=== PATIENT | male | born 1955 | race Caucasian/White ===

== ENCOUNTER 2019-06-14 07:01 | Emergency (ER) | payer BC, SELFPAY ==
[2019-06-14 07:06] VITALS: BP 159/99; PULSE 75; RESP 17; TEMP 36.5; O2SAT 97; BMI 31.1
--- NOTE | 2019-06-14 07:18 | VDLE_ITS ---
Reason For Study: Pain RIGHT GSV is normal. CFV is compressible, spontaneous, phasic, competent and demonstrates normal augmentation. FV is compressible, spontaneous, phasic, competent and demonstrates normal augmentation. POP V is compressible, spontaneous, phasic, competent and demonstrates normal augmentation. T/P Trunk is compressible. PTV is compressible. RT PerV is compressible. Procedure Exam performed portable in ED. A preliminary report was called and/or faxed to [facility]. Interpretation Summary There is no evidence of right lower extremity deep vein thrombosis. Right great saphenous vein appears patent and compressible segmentally. Ordering Physician: Asim Luis Referring Physician: Elias Dutton M.D. Performed By: Summer Robertson RVT
--- NOTE | 2019-06-14 07:29 | ED.DCSUM_ITS ---
History of Present Illness Chief Complaint: Lower Extremity Injury Informant: Patient Onset: Today Context: - - awoke w/ sx 1 hr ago Timing: Continuous Quality of Pain: - - sore Location: right calf Current Severity: Moderate Maximum Severity: Moderate Worsened by: palpation Relieved by: leaving alone Associated Symptoms: Negative for: Parasthesia, Weakness, Loss of Funtion Narrative: Patient concern he may have developed a blood clot in his right leg. He had one before, it was a couple years ago, he was treated with Xarelto for an unknown period of time, and he is no longer anticoagulated. He has had no recent travel, but states his prior blood clot may have been provoked by a trip to [place]. No recent surgery or hospitalization or other illness. Denies any known injury. He states when he went to bed last night he did not have this, but it appeared when he awoke. He also noticed redness and localized swelling where the redness is. Denies any foreign body or break in the skin lately that could be a nidus for infection. No fevers. No chest pain or shortness of breath or lightheadedness or palpitations. Prior similar symptoms: Yes Recent Illness/Hospitalization: No - Past Medical History (1) Hypertension Status: Chronic (2) DVT (deep venous thrombosis) Status: Resolved Past Medical History - Allergies and Home Meds Allergies/Adverse Reactions: Allergies Penicillins Allergy (Verified 06/14/19 07:03) Rash Primary Care Physician: Elias Dutton MD [Primary Care Provider] - Lives: With Family Smoking Status: Never smoker Review of Systems General: Denies: Chills, Fever, Sweats Eyes: Denies: Visual changes - bilaterally, Diplopia ENT: Denies: Rhinorrhea, Sore throat Cardiovascular: Denies: Chest pain, Palpitations Respiratory: Denies: Dyspnea, Cough, Dyspnea on exertion Gastrointestinal: Denies: Abdominal pain, Nausea, Vomiting, Diarrhea, Melena, Hematochezia Genitourinary: Denies: Dysuria, Hematuria, Frequency Musculoskeletal: Reports: Extremity Pain. Denies: Back pain Skin: Reports: Rash - Redness at painful area, right lower leg. Denies: Wounds Neurological: Denies: Headache, Weakness, Numbness Physical Exam Vital Signs/Narrative: Vital Signs Temp Pulse Resp BP Pulse Ox 06/14/19 07:06 97.7 F L 75 17 159/99 H 97 Inital Vital Signs reviewed: Yes - Extremity Exam Right Tib fib: - - Tender erythematous warm patch of skin with mild induration but no palpable cord in the anteromedial right calf. There is localized swelling, but nothing that is dependent/distal or proximal. There is no lymphangitis, progression to the knee, or palpable cords in the thigh. Full range of motion throughout all joints of the right lower extremity without difficulty. All compartments are soft and nondistended.. Negative for: Limited ROM General: Well nourished, Well developed, - - Well-appearing, NAD Skin: No Trauma, Rash - Mildly tender erythema medial calf of the right lower leg, it is a patch that is approximately 4-5 cm in diameter, it is not circular however. There is no lymphangitis. No abscess or fluctuance/pointing. No obvious trauma or obvious nidus for infection or evidence of a foreign body recently. Neurological: Alert, Oriented x3, Cranial nerves II-XII grossly intact, Normal Strength, Normal Sensation, Normal Gait Psychological: Normal affect, Normal Mood Diagnostic/Tx/Re-eval - Medical Decision Making This patch in his right lower leg looked and felt more like a superficial venous thrombosis than a deep one, but since ultrasound was available was obtained. It shows no evidence of deep or superficial venous thrombosis or any other vascular abnormality. Therefore the most likely explanation is that it is early cellulitis. He is well-appearing and his vital signs are unremarkable except for mild systolic hypertension, he is not septic and I do not think further work-up is necessary at this time. He will be treated with antibiotics. When he was a child he developed a rash as a response to penicillins, no anaphylactic reactions. He does not remember if he has ever had a cephalosporin before. He was given an injection of Ancef here, he had no reaction when monitored, and he will be prescribed Keflex. We discussed watching the area for worsening, following up, and/or returning to the ER. He is comfortable with this overall plan. ED Disposition - Plan for ED Patient: Disposition: Home or Assisted Living Diagnosis: Cellulitis of right lower leg Instructions: Cellulitis Prescriptions: Cephalexin [Keflex] 500 mg PO Q6H #40 cap Transmission Status: Pending to [id number] Referrals: Elias Dutton MD [Primary Care Provider] - 3-5 Days if not improving
[2019-06-14] MEDS: Cefazolin 1 GM/5 ML Vial IM (09:23)
== END 2019-06-14 09:51 | disposition home or self-care (01) ==
PROVIDERS: Emergency Provider Emergency Medicine; PCP Internal Medicine
DX: L03.115 Cellulitis of right lower limb (principal); I10 Essential (primary) hypertension; Z86.718 Personal history of other venous thrombosis and embolism; Z79.899 Other long term (current) drug therapy
CPT/HCPCS: 93971; 96372; 99282

== ENCOUNTER → 2019-07-15 08:14 | Outpatient (CLI) | payer BC, SELFPAY ==
--- NOTE | 2019-07-15 08:21 | RAD_ITS ---
STUDY: X-RAY - CERVICAL SPINE REASON FOR EXAM: Male, 64 years old. BILATERAL ARM WEAKNESS, PARANESTHESIAS LEFT HAND. TECHNIQUE: 5 view(s) of the cervical spine were obtained. COMPARISON: None FINDINGS: Normal anterior atlantoaxial articulation. Normal odontoid process. Straightening of the cervical lordosis. Normal vertebral bodies. Degenerative spurring at the endplates. Narrowed C5-6 disc space. Uncovertebral spurring narrowing the C4-5 and C5-6 intervertebral neuroforamina. The soft tissue structures are unremarkable. RAD/Cerv Spine 4 or 5 Views IMPRESSION: Degenerative changes of the visualized cervical spine. Electronically Signed: Jace Jenkins DO at 10:46 EDT Tel [phone], Service support ,
== END ==
PROVIDERS: PCP Internal Medicine; Referring Provider Family Medicine; Visit Provider Family Medicine
DX: M54.12 Radiculopathy, cervical region (principal)
CPT/HCPCS: 72050

== ENCOUNTER 2019-11-08 13:32 | Emergency (ER) | payer OTHER, BC, SELFPAY ==
[2019-11-08 13:33] VITALS: BP 138/89; PULSE 89; RESP 16; TEMP 36.6; O2SAT 99; BMI 30.9
--- NOTE | 2019-11-08 14:12 | ED.VIS.INJ ---
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 He had no loss of consciousness. He states he has a mild headache, nothing severe. He denies any vision changes, neurologic symptoms, ataxia with walking, nausea, or vomiting. He takes no anticoagulants or antiplatelets. Tetanus Immunization: >10 years - Past Medical History (1) Hypertension Status: Chronic (2) DVT (deep venous thrombosis) Status: Resolved Past Medical History - Allergies and Home Meds Allergies/Adverse Reactions: Allergies Penicillins Allergy (Verified 11/08/19 13:35) Rash Primary Care Physician: [facility] [Provider Group] - 5 Days for suture removal Lives: Spouse/ Significant Other Smoking Status: Never smoker Review of Systems General: Denies: Chills, Fever, Sweats Eyes: Denies: Visual changes - bilaterally, Diplopia ENT: Denies: Bilateral ear pain - or drainage, Rhinorrhea, Sore throat Cardiovascular: Denies: Chest pain, Palpitations Respiratory: Denies: Dyspnea, Cough, Dyspnea on exertion Gastrointestinal: Denies: Abdominal pain, Nausea, Vomiting, Diarrhea, Melena, Hematochezia Genitourinary: Denies: Dysuria, Hematuria, Frequency Musculoskeletal: Denies: Neck pain, Back pain, Extremity Pain Skin: Reports: Wounds. Denies: Rash Neurological: Reports: Headache. Denies: Weakness, Numbness Physical Exam Vital Signs/Narrative: Vital Signs Temp Pulse Resp BP Pulse Ox 11/08/19 13:33 98 F 89 16 138/89 H 99 Inital Vital Signs reviewed: Yes General: Well nourished, Well developed Head: Normocephalic, Trauma - Occipital scalp, 5 cm linear, clean-appearing laceration down to the periosteum; galea included in laceration but not through its entire length, maybe 3cm worth of galea involved. No crepitance or depression. Minimal oozing of blood, no pulsatile bleeding. No gross contamination of wound although skin is dirty. Pt is bald on scalp., Tenderness - Occipital scalp laceration Eyes: Perrl, EOMI ENT: TM's clear, No hemotympanum or drainage, No trauma. Negative for: Otorrhea Neck: Nontender, Full ROM Respiratory: No distress Extremeties: Full range of motion throughout all 4 extremities, atraumatic. Skin: Normal color, No rash, Trauma - Occipital scalp laceration 5 cm. See above. Neurological: Alert, Oriented x3, Cranial nerves II-XII grossly intact, Normal Strength, Normal Sensation, Normal Gait Psychological: Normal affect Diagnostic/Tx/Re-eval - Medical Decision Making I do not think patient needs a CT scan of the head, this appears to be localized to the scalp. I discussed that he is in agreement, he has a mild headache but no other concussion symptoms. Discussed reasons to return to the ER. [email or web address] Tetanus was updated. Total of 5 cc of 1% lidocaine with epinephrine in addition to topical let was used for local anesthesia. Laceration scalp Length: 5 cm Depth: to periosteum Shape: Linear Prep: Sterile Conditions Number of Sutures/Saragosa: 6 - irvin to skin Stitch Description: Vicryl - #2, deep/buried in galea, Simple, 4-0 Comment: 2-layer repair ED Disposition - Plan for ED Patient: Disposition: Home or Assisted Living Diagnosis: Occipital scalp laceration, Fall from slip, trip, or stumble, Tetanus-diphtheria (Td) vaccination Instructions: ED Laceration Scalp Sutures or Saragosa Referrals: [facility] [Provider Group] - 5 Days for suture removal
[2019-11-08] MEDS: Diphth,Pertuss(Acell),Tet Vac 0.5 ML Vial IM (14:24)
[2019-11-08] MEDS: Lidocaine/Epi/Tetracaine 50 ML 1 APPLIC TOPICAL (14:33)
== END 2019-11-08 15:50 | disposition home or self-care (01) ==
LOC: ED 14:26
PROVIDERS: Emergency Provider Emergency Medicine; PCP Internal Medicine
DX: S01.01XA Laceration without foreign body of scalp, initial encounter (principal); W01.0XXA Fall on same level from slipping, tripping and stumbling without subsequent striking against object, initial encounter; Y93.9 Activity, unspecified; Y92.9 Unspecified place or not applicable; Z23 Encounter for immunization; I10 Essential (primary) hypertension; Z86.718 Personal history of other venous thrombosis and embolism; Z79.899 Other long term (current) drug therapy
CPT/HCPCS: 12002; 90471; 90715; 99283

== ENCOUNTER → 2020-03-11 06:33 | Outpatient (CLI) | payer BC, SELFPAY ==
--- NOTE | 2020-03-11 08:53 | NEURO_ITS ---
NCS and/or EMG Patient Report Ordering Doctor: Rayray Knight DATE OF SERVICE: 03/11/20 Indication: Bilateral lower extremity weakness (left greater than right). 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 His balance is poor. He experiences strange sensations in his feet. There have been several falls on account of his left leg buckling. Findings: Nerve conduction studies were performed in the bilateral lower extremities. The right peroneal motor study recording the extensor digitorum brevis showed an absent response. The right tibial motor study recording the abductor hallucis brevis showed a markedly reduced amplitude, normal distal latency and slowed conduction velocity. Right sural sensory response was absent. Right superficial peroneal sensory response was absent. The left peroneal motor study recording the extensor digitorum brevis showed markedly reduced amplitude, normal latency, and slowed conduction velocity. The left tibial motor study recording the abductor hallucis brevis showed an absent response. Left sural sensory response was absent. Left superficial peroneal sensory response was absent. Needle EMG of the left lower extremity muscles was performed. Mild active denervation was present in the tibialis anterior, medial gastrocnemius, and extensor hallucis longus muscles. More prominent denervation was present in the vastus medialis and rectus femoris muscles. Distal muscles revealed large amplitude, long duration and polyphasic motor units. The rectus femoris and vastus medialis muscles revealed slightly small amplitude, short duration and polyphasic units with early recruitment. Given the needle exam findings in the lower extremity, a limited EMG examination of the left upper extremity was performed. Active denervation was present in the flexor digitorum profundus and flexor carpi radialis muscles. Motor units in the deltoid, triceps, and first dorsal interosseous were slightly large amplitude, long duration with normal recruitment. Only one rapidly firing, polyphasic motor unit was seen in the flexor digitorum profundus. Motor units in the flexor carpi radialis were slightly low amplitude, short duration, and polyphasic with early recruitment. Impression: This is markedly abnormal and complex study. 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 If a muscle biopsy is to be pursued, the RIGHT vastus lateralis and/or rectus femoris would be an appropriate site. 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 Please note, due to the coexistence of the two aforementioned conditions this study would be insensitive for detecting an underlying radiculopathy. Segun Ly D.O.
== END ==
PROVIDERS: PCP Internal Medicine; Referring Provider Physician Assistant; Visit Provider Physician Assistant
DX: M54.16 Radiculopathy, lumbar region (principal)
CPT/HCPCS: 95886; 95910

== ENCOUNTER → 2020-03-22 10:05 | Outpatient (CLI) | payer BC, SELFPAY ==
--- NOTE | 2020-03-22 10:11 | EKG12_ITS ---
Test Reason : PRE OP Blood Pressure : / mmHG Vent. Rate : 071 BPM Atrial Rate : 071 BPM P-R Int : 156 ms QRS Dur : 098 ms QT Int : 374 ms P-R-T Axes : 062 053 040 degrees QTc Int : 406 ms Normal sinus rhythm Nonspecific ST abnormality Abnormal ECG Confirmed by MARY GRACE FLORES, DARIEN ([id number]), editor in chief newspaper FAIZA CARDONA ([id number]) on 03/25/2020 10:36:53 AM Referred By: Sanjiv Mccarthy Confirmed By:DARIEN BRODY MD
--- NOTE | 2020-03-22 10:11 | RAD_ITS ---
STUDY: X-RAY CHEST REASON FOR EXAM: Male, 65 years old. pre op -- no chest complaints TECHNIQUE: PA and lateral views of the chest. COMPARISON: None. FINDINGS: The lungs are clear and expanded. There is no demonstrated pleural abnormality. Normal size heart. Normal mediastinum and ashly. Normal visualized pulmonary arteries. Normal visualized aortic arch and descending thoracic aorta. Normal visualized thoracic spine. Normal visualized ribs, clavicles, and shoulders. There is no demonstrated abnormality of the visualized soft tissue structures of the upper abdomen. RAD/Chest PA and Lateral IMPRESSION: Normal x-ray examination of the chest. Electronically Signed: Gilberto Zayas MD at 17:34 EST Tel , Service support ,
[2020-03-22 11:17] LABS: Absolute Lymphocyte Count 1.82 X10^3/uL (0.83-4.51); Absolute Neutrophil Count 4.1 X10^3/uL (2.0-7.7); Basophil# 0.05 X10^3/uL; Basophil% 0.7 % (0-1); Eosinophil# 0.23 X10^3/uL; Eosinophils% 3.4 % (0-5); Hematocrit 41.8 % (40-54); Hemoglobin 13.9 g/dL (13.0-16.5); Lymphocyte # 1.82 X10^3/ul (4.0); Lymphocyte % 26.5 % (19-41); Mean Corp Hgb Conc 33.3 g/dL (32-36); Mean Corpuscular Hgb 30.6 pg (27.0-32.0); Mean Corpuscular Volume 92.1 fL (80-94); Mean Platelet Vol. 9.3 fl (6.2-12.0); Monocyte# 0.64 X10^3/uL; Monocyte% 9.3 % (0-10); NRBC Flagged by Analyzer 0 % (0-5); Neutrophil # 4.09 X10^3/uL (2.7-7.7); Neutrophil % 59.7 % (47-70); Platelet Count 305 K/mm3 (150-450); RBC Distribution Width CV 14.1 % (11.6-14.6); RBC Distribution Width SD 47.5 fl (35.1-43.9); Red Blood Count 4.54 M/mm3 (4.6-6.2); White Blood Count 6.9 K/mm3 (4.4-11.0)
[2020-03-22 11:33] LABS: Hemoglobin A1c 5.5 % (3.8-5.6)
[2020-03-22 11:50] LABS: Anion Gap 5 (5-15); BUN 26 mg/dL (7-18); BUN/Creat Ratio 29.9 RATIO (10-20); Calcium,Total 9.2 mg/dL (8.5-10.1); Chloride 106 mmol/L (98-107); Creatinine, Serum 0.87 mg/dL (0.70-1.30); EST Glomerular Filtration Rate 94 mL/min (>60); Est Glom Filt Rate - Afr Amer 113 mL/min (>60); Glucose 90 mg/dL (74-106); Potassium 4.3 mmol/L (3.5-5.1); Sodium Level 137 mmol/L (136-145)
[2020-03-22 12:36] LABS: International Normalized Ratio 1.1; Prothrombin Time (Protime)PT. 13.5 SECONDS (11.7-14.9)
[2020-03-22 12:37] LABS: Partial Thromboplast Time 27.8 Seconds (24.1-36.2)
== END ==
PROVIDERS: PCP Family Medicine; Referring Provider Orthopaedic Surgery; Visit Provider Orthopaedic Surgery
DX: Z01.811 Encounter for preprocedural respiratory examination (principal); Z01.818 Encounter for other preprocedural examination; Z01.810 Encounter for preprocedural cardiovascular examination
CPT/HCPCS: 36415; 71046; 80048; 83036; 85025; 85610; 85730; 93005

== ENCOUNTER → 2020-04-08 | Outpatient (CLI) | payer BC, SELFPAY | END | disposition home or self-care (01) | LOC: LABSPEC 09:50 | PROVIDERS: PCP Family Medicine; Referring Provider Orthopaedic Surgery; Visit Provider Orthopaedic Surgery | DX: Z11.59 Encounter for screening for other viral diseases (principal) | CPT/HCPCS: 87635; C9803; U0003 ==

== ENCOUNTER → 2020-04-19 10:34 | Outpatient (CLI) | payer BC, SELFPAY | PROVIDERS: PCP Family Medicine; Referring Provider Orthopaedic Surgery; Visit Provider Orthopaedic Surgery | DX: Z11.59 Encounter for screening for other viral diseases (principal) | CPT/HCPCS: 87635; U0003 ==

== ENCOUNTER → 2020-04-22 13:21 | Outpatient (CLI) | payer BC, SELFPAY ==
--- NOTE | 2020-04-22 13:31 | MRI_ITS ---
STUDY: MRI CERVICAL SPINE WITHOUT CONTRAST REASON FOR EXAM: Male, 65 years old. monoplegia pain neck and left shoulder/ arm, numbness hand TECHNIQUE: Standardized fat and water weighted pulse sequences were obtained in the sagittal and axial planes. COMPARISON: X-ray of the cervical spine dated July 15, 2019 FINDINGS: Normal foramen magnum and brainstem-cervical cord junction. Normal craniovertebral junction. Normal anterior atlantoaxial articulation. Normal odontoid process. There is reversal of the normal cervical lordosis. C2-3: Normal endplates. The disc is desiccated. Normal disc height and morphology. Normal central canal and intervertebral neural foramina. C3-4: Mild to moderate disc space narrowing with a diffuse disc spur complex and superimposed moderate midline disc extrusion causing compression anterior aspect of the cord and moderate central canal stenosis. Severe left foraminal stenosis with compression is present due to uncovertebral facet joint hypertrophy. Mild right foraminal stenosis is present. C4-5: Mild to moderate disc space narrowing with a diffuse disc osteophyte complex and superimposed central disc contusion resulting in moderate central canal stenosis and compression anterior aspect of the cord. Normal right neural foramen. Severe left foraminal stenosis with nerve root due to combine facet joint and uncovertebral hypertrophy. C5-6: Severe disc space narrowing with a diffuse disc osteophyte complex causes moderate central canal stenosis and compression anterior aspect of the cord. Moderate bilateral foraminal stenosis with nerve root compression is also present. Retrolisthesis of C5 on C6 of 2 mm is also present. C6-7: Mild posterior disc space narrowing and broad-based is herniation contribute to mild central canal stenosis and mild compression anterior aspect of the cord. Normal intervertebral neural foramina. C7-T1: Normal endplates. Normal disc height, signal and morphology. Normal central canal and intervertebral neural foramina. Normal cervical cord. There is no demonstrated cervical cord syrinx cavity. Normal visualized soft tissue structures. MRI/Spine Cervical (Routine) IMPRESSION: 1. Multilevel degenerative changes, as described above. 2. Mild to moderate central canal stenosis and cord compression from C3-C4 down to C6-C7. Electronically Signed: Andrew Sheth MD at 22:27 EST , Service support ,
== END ==
PROVIDERS: PCP Family Medicine; Referring Provider Anesthesiology Pain Medicine; Visit Provider Anesthesiology Pain Medicine
DX: G83.34 Monoplegia, unspecified affecting left nondominant side (principal)
CPT/HCPCS: 72141

== ENCOUNTER → 2020-04-23 | Outpatient (CLI) | payer BC, SELFPAY ==
--- NOTE | 2020-04-23 | MUSA_PTH ---
PATIENT: PRANAV AMAYA LOC: [facility] U#:[id number] AGE/SX: 65/M ROOM: RE04/23/[address]: Dr. Sanjiv Mccarthy DO : 1955 BED: DIS: 04/23/2020 SPEC #: [id number] RECD: 04/23/20 10:30 STATUS: MARK AYAKA #: [id number] [facility]: 04/23/20 00:[address]: Sanjiv Mccarthy DEPT: SURGICAL PATHOLOGY RECD BY: Omid Gonzalez ENTERED: 04/23/20 10:30 SP TYPE: MUSCLE BX VICENTE DR: Dr. Fernando Duckworth MD [facility] Tissues: MUSCLE OF.. Procedures: Electron Microscopy (ACH) Spec St Grp II (ACH) Biopsy ACH HEADER OPERATION: Right vastus lateralis muscle biopsy PRE-OP DIAGNOSIS: Spondylosis with radiculopathy, lumbar region TISSUE SUBMITTED: Right vastus lateral muscle (on tongue depressor wrapped in saline gauze) MICROSCOPIC DIAGNOSIS Skeletal muscle, right vastus lateralis, biopsy: Inflammatory myopathy with focal myonecrosis. COMMENT Taken together, the features are diagnostic of an inflammatory myopathy, with the presence of myonecrosis being of note. Myonecrosis may be seen in a number of myopathic conditions, including but not limited to, dysferlin deficiency and paraneoplastic myopathy. The rare rimmed vacuoles raise the differential consideration for inclusion body myositis; however, electron microscopy studies do not show any evidence of tubulofilamentous inclusions. Clinical correlation is recommended. There is no evidence of neurogenic change. MICROSCOPIC DESCRIPTION Sections show a partially well-oriented portion of skeletal muscle with a moderate variation in fiber size. There are frequent rounded atrophic fibers present. Degenerating and regenerating fibers are present. Occasional fibers show macrophage invasion indicative of myonecrosis. There is extensive endomysial inflammation. There is no evidence of vasculitis. The biopsy contains some fascia. A rare split fiber is seen. There is mild fatty replacement of the muscle. Due to the orientation of the specimen, hypertrophic fibers are difficult to evaluate. There does not appear to be an increase in the number of myofibers with internalized nuclei. Trichrome stain highlights rare rimmed vacuoles, but no deposits or ragged red fibers are seen. ATPase stains, performed at pH 4.6 and pH 9.4, show type 2 atrophy. NADH, SDH and ELLIOTT stains show scattered fibers with central pallor, although many fibers showing this feature are tangentially cut. PAS and Oil Red O stains show no evidence of increased glycogen or lipid deposition, respectively. Electron microscopy studies were performed. Resin sections are examined which show portions of longitudinally oriented muscle. Ultrastructural examination shows normal myofibrillary architecture. There are rare areas with membranous whorls. There is minimal glycogen deposition, predominantly at the periphery of some myofibers. There are some myofibers with swollen mitochondria. No tubulointerstitial filaments are seen. GROSS DESCRIPTION The specimen is sent entirely to [facility] diagnosis. The specimen consists of a muscle biopsy received fresh on saline-dampened gauze, on ice, sutured and stretched onto a stick. The specimen is red and measures 2.5 x 1.5 x 0.6 cm. Dowel Pin Man portions are submitted for histochemistry, light microscopy and electron microscopy; extra frozen in foil.
== END | disposition home or self-care (01) ==
PROVIDERS: PCP Family Medicine; Referring Provider Orthopaedic Surgery; Visit Provider Orthopaedic Surgery
DX: M47.26 Other spondylosis with radiculopathy, lumbar region (principal)
CPT/HCPCS: 88300; 88305; 88313; 88348

== ENCOUNTER → 2020-05-10 | Outpatient (CLI) | payer BC, SELFPAY | END | disposition home or self-care (01) | LOC: LABSPEC 15:16 | PROVIDERS: PCP Family Medicine; Referring Provider Orthopaedic Surgery; Visit Provider Orthopaedic Surgery | DX: T81.89XA Other complications of procedures, not elsewhere classified, initial encounter (principal) | CPT/HCPCS: 87070; 87075; 87077; 87186; 87205 ==

== ENCOUNTER → 2020-06-13 09:10 | Outpatient (CLI) | payer BC, SELFPAY ==
[2020-06-13 10:46] LABS: Erythrocyte Sedimentation Rate 10 mm/hr (0-20)
[2020-06-13 10:58] LABS: Hemoglobin A1c 5.3 % (3.8-5.6)
[2020-06-13 11:03] LABS: Vitamin B12 450 pg/mL (211-911)
[2020-06-13 11:39] LABS: CPK Total, Creatine Kinase 872 U/L (39-308); CRP < 2.90 mg/L (0.0-3.0); Rheumatoid Factor < 10.0 IU/mL (<15); Thyroid Stim Hormone (TSH) 3.15 uIU/mL (0.358-3.74)
[2020-06-14 12:08] LABS: RNP Ab <0.2 AI (0.0-0.9); Smith Ab <0.2 AI (0.0-0.9)
[2020-06-14 13:48] LABS: ANTINUCLEAR ANTIBODIES DIRECT Negative (Negative)
[2020-06-14 16:09] LABS: Albumin 3.8 g/dL (2.9-4.4); Alpha-1-Globulins 0.1 g/dL (0.0-0.4); Alpha-2-Globulins 0.8 g/dL (0.4-1.0); Cytoplasmic Ab (C-ANCA) <1:20 titer (Neg:<1:20); Gamma Globulin 1.7 g/dL (0.4-1.8); Immunoglobulin A 301 mg/dL (61-437); Immunoglobulin G 1726 mg/dL (603-1613); Immunoglobulin M 49 mg/dL (20-172); PROEL- TOTAL PROTEIN 7.4 g/dL (6.0-8.5)
[2020-06-14 20:53] LABS: Perinuclear Ab (P-ANCA) <1:20 titer (Neg:<1:20)
== END ==
PROVIDERS: PCP Family Medicine; Referring Provider Psychiatry & Neurology Neurology; Visit Provider Psychiatry & Neurology Neurology
DX: G62.9 Polyneuropathy, unspecified (principal); G72.9 Myopathy, unspecified; R53.1 Weakness; G98.8 Other disorders of nervous system; C80.1 Malignant (primary) neoplasm, unspecified
CPT/HCPCS: 36415; 82550; 82607; 82784; 83036; 84165; 84443; 85652; 86038; 86140; 86235; 86256; 86334; 86431

== ENCOUNTER → 2020-06-18 10:20 | Outpatient (CLI) | payer BC, SELFPAY ==
[2020-06-18 10:54] LABS: Absolute Neutrophil Count 6.9 X10^3/uL (2.0-7.7); Basophil# 0.04 X10^3/uL; Basophil% 0.5 % (0-1); Eosinophil# 0.04 X10^3/uL; Eosinophils% 0.5 % (0-5); Hematocrit 43.2 % (40-54); Hemoglobin 14.3 g/dL (13.0-16.5); Lymphocyte % 16.1 % (19-41); Mean Corp Hgb Conc 33.1 g/dL (32-36); Mean Corpuscular Hgb 30.2 pg (27.0-32.0); Mean Corpuscular Volume 91.3 fL (80-94); Monocyte# 0.29 X10^3/uL; Monocyte% 3.3 % (0-10); NRBC Flagged by Analyzer 0 % (0-5); Neutrophil # 6.87 X10^3/uL (2.7-7.7); Platelet Count 339 K/mm3 (150-450); RBC Distribution Width CV 14.2 % (11.6-14.6); RBC Distribution Width SD 47.4 fl (35.1-43.9); Red Blood Count 4.73 M/mm3 (4.6-6.2); White Blood Count 8.7 K/mm3 (4.4-11.0)
[2020-06-18 11:25] LABS: ALB/GLOB Ratio 0.9 RATIO (0.9-2.4); AST(SGOT) 31 U/L (15-37); Alanine Aminotransfer ALT/SGPT 46 U/L (16-61); Albumin, Serum 4.1 g/dL (3.2-5.0); Alkaline Phosphatase 75 U/L (45-117); Anion Gap 4 (5-15); BUN 29 mg/dL (7-18); BUN/Creat Ratio 32.8 RATIO (10-20); Calcium,Total 9.3 mg/dL (8.5-10.1); Chloride 106 mmol/L (98-107); Creatinine, Serum 0.88 mg/dL (0.70-1.30); EST Glomerular Filtration Rate 92 mL/min (>60); Est Glom Filt Rate - Afr Amer 111 mL/min (>60); Globulin 4.4 g/dL (2.2-4.2); Glucose 95 mg/dL (74-106); Potassium 4.6 mmol/L (3.5-5.1); Protein, Total 8.5 g/dL (6.4-8.2); Sodium Level 137 mmol/L (136-145); Uric Acid 5.4 mg/dL (3.5-7.2)
[2020-06-18 12:27] LABS: Hepatitis B Surface Antibody Non-Reactive; Hepatitis B Surface Antigen Non-Reactive (Nonreactive); Hepatitis C Antibody Non-Reactive (Nonreactive)
[2020-06-20 13:05] LABS: CCP IgG Antibodies 6 units (0-19)
== END ==
PROVIDERS: PCP Family Medicine; Referring Provider Internal Medicine Rheumatology; Visit Provider Internal Medicine Rheumatology
DX: G72.41 Inclusion body myositis [IBM] (principal); Q66.70 Congenital pes cavus, unspecified foot; M48.02 Spinal stenosis, cervical region; M47.897 Other spondylosis, lumbosacral region
CPT/HCPCS: 36415; 80053; 81002; 82570; 84156; 84550; 85025; 86200; 86706; 86803; 87340

== ENCOUNTER → 2020-06-20 | Outpatient (CLI) | payer BC, SELFPAY ==
[2020-06-20 08:55] LABS: Protein, Urine (Random) 14.3 mg/dL (<11.9); Protein:Creat Ratio 159 mg/g CRE (0-200)
[2020-06-24 14:08] LABS: PROELU- Albumin, Urine 21.3 % (.); PROELU- Alpha-1-Globulin,Ur 0.2 % (.); PROELU- Alpha-2-Globulin,Ur 7.2 % (.); PROELU- Gamma Globulin, Ur 35.3 % (.); Total Protein, Ur 11.1 mg/dL (Not Estab.)
== END | disposition home or self-care (01) ==
LOC: LABSPEC 08:20
PROVIDERS: PCP Family Medicine; Referring Provider Internal Medicine Rheumatology; Visit Provider Internal Medicine Rheumatology
DX: G72.41 Inclusion body myositis [IBM] (principal); Q66.70 Congenital pes cavus, unspecified foot; M48.02 Spinal stenosis, cervical region; M47.897 Other spondylosis, lumbosacral region
CPT/HCPCS: 82570; 84156; 84166

== ENCOUNTER 2020-10-16 07:30 | Outpatient (RCR) | payer MEDICARE, OTHER, SELFPAY ==
--- NOTE | 2020-09-04 13:05 | HP.PTEVAL ---
Patient's Visit Information PRANAV AMAYA is a 65 year old M referred to Physical Therapy by Dr. Alexander Fagan DO with a diagnosis of Inclusion body myositis. 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 Pt reports he had noticed his L UE and LE being much weaker than the R UE/LE. Pt reports he does have weakness in the R UE a little, but notes the L side is much worse. 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 Pt reports tingling and numbness in B feet in the toe region secondary to neuropathy. No sleep difficulty at this time secondary to pain. Pt reports he has sig difficulty with negotiating stairs at this time secondary to weakness. Pt reports difficulty with sit to stand transfers as well. Pt reports he is not in pain at this time. Pt lives in a ranch house and only goes down stairs to burn fires. - Objective Neuro: B LE sensation is WNL to light touch. R patellar reflex= 2/3, L= 1/3. ROM: R knee 0-90 degrees, L knee 0-35-90. MMT: R knee flex= 4-/5, ext= 4+/5; L knee flex= 4-/5, ext= 3-/5. Gait: Pt is able to ambulate greater than 1000 feet without difficulty - Goals Goal 1:: Increase B LE strength x 1 grade to aid with work requirements Goal Time Frame: 4-6 Weeks Goal 2:: Pt will be able to transfer in and out of his tractor with 50% greater ease to aid with IADL's Goal Time Frame: 4-6 Weeks Goal 3:: I with HEP Goal Time Frame: 4-6 Weeks - Rehabilitation Potential Physical Therapy Diagnosis: Pt has LE weakness, difficulty with stair negotiation, and difficulty with farm duties secondary to inclusion body myositis Rehabilitation Potential: Good - Anticipated Interventions Patient/Client Instruction: Educate patient on: Condition, Plan of Care For the Purpose of:: To improve self management Therapeutic Exercise to Include: Strength training, Endurance training, Balance training, Gait and locomotor training, Dynamic Lumbar Stabilization For the Purpose of:: To improve muscle performance and motor function, To improve ability to perform ADL's, To improve ability of physical actions for home/community/work/leisure Thank you for the opportunity to evaluate your patient. For Medicare and Medicare HMO plans, please review the plan of care and approve it. It will need to be FAXED BACK to us at [phone] for Medicare purposes. For Medicare only, by signing this I certify the plan of care. Please let me know if there are questions or concerns regarding this plan of care. Physician Signature: Date:
--- NOTE | 2020-09-05 16:35 | HP.OTEVAL_ITS ---
Patient's Visit Information PRANAV AMAYA is a 65 year old M, referred to Occupational Therapy by Dr. Alexander Fagan DO, with a diagnosis of Myositis. Date of Evaluation: 09/04/20 Occupational Therapist: Elaine Sunshine, OTR/Khanh, CHT - Subjective This 65 year old male was seen for OT eval with dx of inclusion body myositis. p t states he was dx in May but noticed the weakness for over a year but he thought it was related to arthritis. pt states he has been plateaued with his weakness. 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 pt states getting on and off the tractor is challenging but he states he is able to do it. Pt states he FRANCIE with use of left UE with ADLs and IADLs. pt lives with and his son- both work outside of home. - ROM ROM Comments: pt demo with limited ability to from a composite fist with left hand. pt demo no left IP flex pt is unsure how long this has been - Strength General Magistrate: right 25# left 4# Lateral Pinch: right 16# left 2# Tripod Pinch: right 8# left 2# - Quick DASH-Disab of Arm,Shoulder& Hand Quick DASH Score: 47.5000 - Goals Goal:: pt will demo a increase in bilateral retail service representative strength by 10# to increase pts ind. with ADLS and IADLS by d/c Goal:: pt will demo the ability to manipulate small objects to increase ind. with ADLs and IADLs by d/c - Rehabilitation General Assessment: pt demo weakness in bilateral UE limiting pts functional use of hands for retail service representative/pinch activities. pt would benefit from skilled OT services 1- 2x week for 4 weeks to assist pt on a HEP, ed. on ad. eq. to increase pts ind. with ADLs and IADLs. pt demo understanding and agree to POC. Rehabilitation Potential: Fair - Anticipated Interventions Strengthening, Fine Motor Coord/Sampson, ADL Training, Education re assistive Equipment, Education re Diagnosis - Visit Plan Frequency: 1x/Week Duration: 4 Weeks TEXT: Thank you for the opportunity to evaluate your patient. For Medicare and Medicare HMO plans, please review the plan of care and approve it. It will need to be FAXED BACK to us at [phone] for Medicare purposes. Please let me know if there are questions or concerns regarding this plan of care. Physician Signature: Date:
--- NOTE | 2020-10-04 10:38 | HP.OTDCSUM ---
It has been my pleasure to treat PRANAV AMAYA under orders from Dr. Alexander Fagan DO, for the diagnosis of Myositis for a total of 9 visit(s). Please see the following information for a summary of their discharge status. % Improvement: 25 Objective/Function: L Hot Air Furnace Installer And Repairer 20#. R Hot Air Furnace Installer And Repairer 25#. L Lat Pinch 10#. L Tri Pinch 3#. pt demo good understanding of HEP and states he will continue with is PRE as able. Patient Goals: Improve Fine Motor Skills, Use Hand/Wrist/Arm Normally Again Goal:: pt will demo a increase in bilateral physician/internist strength by 10# to increase pts ind. with ADLS and IADLS by d/c Goal:: pt will demo the ability to manipulate small objects to increase ind. with ADLs and IADLs by d/c Plan: last appt , [place] Discharge Comments: PT was seen for 9 OT visits ed. on HEP that would include UB and physician/internist strength. Pt in good spirits and feels he will cont. with his HEP as able. pt to return to if change in his function. pt agrees with D.C. If there are questions or concerns regarding this patient's occupational therapy, please fell free to call me at [phone]. Thank you for the referral of this patient. Sincerely, Elaine Sunshine, OTR/L, CHT
--- NOTE | 2020-10-07 17:34 | HP.SP.AD_ITS ---
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 Pt referred for speech therapy assessment following a dx of body myositis in April. 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 Today, Pt presents with L sided weakness in L arm and L leg. Pt reports food/drink such as Tajik fries, Roast beef, and pop are challenging for him as they sometime cuts off air, but coughing brings it back up. Pt reports after ejecting stuck bolus using an oral rinse of water will help to clear bolus. Pt reports carbonation from pop makes it feel like its cutting off airway. No hx of pneumonia or GERD; however high BP. Smoking Status: Never smoker Hx Smoking: No Hx Tobacco Use: No - Pain Is pain an issue with your current prescribed condition?: No - Personal Right Hearing Abillity: Normal Left Hearing Abillity: Normal Visual Assistive Devices: Glasses Patients Living Arrangements: With Significant Other Patient Allergies - Allergies Allergies Penicillins Allergy (Verified 11/08/19 13:35) Rash Objective Oral Motor - Oral Status Dentition: Missing Teeth - Labial Observation at Rest: Left Droop Closure: WNL Pucker: WFL Retraction: WFL - Lingual Impairment: WNL Protrusion: WFL Retraction: WFL Lateralization: WFL Involuntary Movement: No - Oral Motor Comments Comments: Observed min weakness on L side at rest which appears to be consistent with LUE and LLE weakness. - Respiratory Status Respiratory Status: Room Air Subjective Dysphagia - Symptoms Reported Symptoms/Problems with: Choking, Difficulty Swallowing Solids, Food gets stuck - Current Diet Solids Current Diet: Regular - Current Diet Liquids Current Liquids: Thin Objective Dysphagia - Administered by Administered by: COLOR CONSULTANT - Thin Liquids Administred via: Cup, Straw Patient Report: Pt reports no difficulties Comments: No overt s/s of aspiration/penetration with drink by cup or straw. Pt consumed thin liquid via straw as oral rinse with no overt s/s of aspiration/penetration. - Regular Impaired Mastication: mastication WFL AP Movement: Timely Patient Report: Pt reported nothing is sticking Comments: No overt s/s of aspiration/penetration. - Results Swallowing Diagnosis: Dysphagia Unspecified Additional: Results of BSE suggest Pt's swallowing WFL, however waiting for MBS report Dysphagia Assessment - Recommendations Swallowing Treatment: Yes - Diet Texture Recommendations Solids Other: Regular Other Solid: as tolerated Liquids: Thin - Safety Saftey Precautions/Swallowing Recommendations (Check all that Apply): Upright Position at Least 30 Minutes After Meals, Small Sips & Bites when Eating Other Impressions - Comments Swallowing Strategies -: Radiology report from [facility] on 09/02/20 indicated decreased pharyngeal transit ; vallecular and piriform sinus residuals with thin/NTL/puree; weakness of pharyngeal wall with reduced laryngeal elevation which worsened on progression. Given these results and Pt's dx, suspect swallowing exercises may increase fatigue of swallowing musculature, therefore increasing Pt's risk of aspiration/penetration of food/drink. Suspect compensatory strategies such as double swallow and effortful swallow would be more beneficial. Still waiting to receive speech tx report from MBS completed on 09/02/20 at [facility]. Plan - Plan Plan: Will recommend pt for intermittent outpatient speech therapy to address progressing effects of myositis on his swallowing. Pt would benefit from training in compensatory strategies for swallowing food/drink and diet recommendations as food/drink become more challenging. Without skilled ST services, the pt is at risk for restrictive diet recommendations and potential for aspiration/penetration of food/drink. - Recommendations Treatment Warranted: Yes - Frequency Frequency: Quarterly Duration: 12 Months Visits in this POC: 4 - Goals that are Established: Determination:: Goals will be added/modified as deemed necessary and appropriate. Therapy will be discontinued when results of re-evaluation indicate therapy is no longer needed or lack of progress has been documented. - Goal #1-5 Goal #1: Pt will consume least restrictive diet with no overt s/s of aspiration/penetration to aid in safe consumption of food/drink upon independence at home. Goal #2: Will continue assessment to determine compensatory strategy goals. Education - Patient has Indicated that the Following Identified Educational Needs: None The Patient has indicated that they have no educational or learning abilities that may effect their care.: Yes - Patient Instruction Patient Education: Diagnosis, Treatment Plan, Safety Precautions, Diet Level Person Taught: Patient Teaching Method: Discussion Response to teaching: Verbalize understanding
--- NOTE | 2020-10-16 08:07 | HP.PTDCSUM ---
It has been my pleasure to treat PRANAV AMAYA referred by Dr. Alexander Fagan DO, with the diagnosis of Inclusion body myositis for a total of 9 visit(s). Discharge Date: Please see the following information for a summary of their discharge status. Subjective: I feel looser overall, but I still have hip pain. R hip Pain Intensity (Out of 10): 4 % Improvement: 60 Objective/Function: R hip pain is 4/10 this date. BLE MMT: B LE hip abd and add= 4+/5. B hip flex, R knee ext= 4-/5. L knee ext= 3-/5. Pt is I with HEP. 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 Thank you for the referral of this patient. Sincerely, Aaron Jerry, PT, ATC
== END 2020-10-16 19:00 | disposition home or self-care (01) ==
LOC: PT 07:30
PROVIDERS: PCP Family Medicine; Referring Provider Psychiatry & Neurology Neurology; Visit Provider Psychiatry & Neurology Neurology
DX: G72.41 Inclusion body myositis [IBM] (principal); R13.0 Aphagia
CPT/HCPCS: 92610; 97110; 97140; 97161; 97164; 97165

== ENCOUNTER → 2022-01-14 | Outpatient (CLI) | payer MEDICARE, OTHER, SELFPAY ==
--- NOTE | 2022-01-14 16:00 | CT_ITS ---
We are attempting to reach an attending provider to discuss findings. An addendum with communication details will be sent when the communication is complete. EXAM: CT CHEST WITH INTRAVENOUS CONTRAST CLINICAL INDICATION: HEMOPTYSIS TECHNIQUE: Helically acquired images were obtained of the chest with intravenous contrast. This CT exam was performed using one or more of the following dose reduction techniques: automated exposure control, adjustment of the mA and/or kV according to patient size, and/or use of iterative reconstruction technique. This report was created using [employer] report BBE technology. CONTRAST: IV 100mL Isovue-300 RADIATION DOSE: CTDIvol = 14.22 mGy, DLP = 543.71 mGy-cm COMPARISON: None. FINDINGS: LUNGS AND PLEURAL SPACES: Unremarkable. No mass. No consolidation or edema. No pleural effusion or thickening. No pneumothorax. HEART: There are calcifications of the coronary arteries. Heart size is normal. No pericardial effusion. MEDIASTINUM: Unremarkable. No mediastinal or hilar adenopathy. Esophagus is unremarkable. No hiatal hernia. THYROID: Unremarkable. No thyroid lesions. BONES/JOINTS: There are degenerative changes of the shoulders. There are multi-level degenerative changes of the thoracic spine. No suspicious lytic or blastic abnormality. VASCULATURE: There is a right lower lobe demonstrated pulmonary embolism. No heart strain. There is atherosclerotic calcification of the aortic arch with tortuosity and elongation of the aortic arch and descending thoracic aorta. Thoracic aorta is non-dilated. No thoracic aortic dissection. CT/Chest WITH Contrast IMPRESSION: There is a right lower lobe demonstrated pulmonary embolism. No heart strain. Electronically Signed: Aaron Dailey MD at 16:20 EDT ,
[2022-01-14 16:20] LABS: EGFR FINGERSTICK > 60.0000 mL/min (>60)
== END | disposition home or self-care (01) ==
LOC: CT 15:49
PROVIDERS: PCP Family Medicine; Referring Provider Family Medicine; Visit Provider Family Medicine
DX: R04.2 Hemoptysis (principal)
CPT/HCPCS: 71260; Q9967

== ENCOUNTER 2022-01-20 01:49 | Emergency (ER) | payer MEDICARE, OTHER, SELFPAY ==
[2022-01-20 01:50] VITALS: BP 152/88; PULSE 86; RESP 17; TEMP 36.3; O2SAT 98; BMI 28.9
--- NOTE | 2022-01-20 02:19 | EDS_ITS ---
HPI History of Present Illness Chief Complaint: Chest Pain Informant: patient Narrative Narrative: Patient resents with right lower chest tightness. He woke up this morning with this. It lasted for about an hour. He states when he first woke up he did feel little short of breath. He does not now. He has no nausea vomiting lightheadedness. No diaphoresis. Nothing specifically made it better or worse. No coughing. No hemoptysis. Patient did have an episode of chest discomfort back in mid December. It was very mild and it was on the left side. It resolved after he wrapped it for 1 night. But he then had an episode of hemoptysis. He states it was not a lot of blood but it did concern him. He is followed up with his primary physician. They were able to get a CAT scan on the of this month that did show a blood clot more in the right side. He was started on Coumadin. He had his level checked on Wednesday and was told to stay on his same dose at 5 mg a day. He has not been on Lovenox or Eliquis or Xarelto. Patient does have a history of high blood pressure. He does not have diabetes, high cholesterol or known family history of heart disease. He is not a smoker. He evidently does have a history of a clotting disorder per visits in the past with [facility]. He is not sure if this was protein C, protein S, factor V Leiden or other. But he had never had any prior clots. [facility] Home Medications allopurinol 300 mg tablet 300 mg PO DAILY 06/14/19 [History Last Taken 11/08/19] amlodipine 10 mg tablet 10 mg PO DAILY 06/14/19 [History Last Taken 11/08/19] lisinopril 40 mg tablet 40 mg PO DAILY 06/14/19 [History Last Taken 11/08/19] meloxicam 15 mg tablet 15 mg PO DAILY 06/14/19 [History Last Taken 11/08/19] warfarin 5 mg tablet 5 mg 1XD 01/20/22 [History Last Taken Unknown] Allergy/AdvReac Type Severity Reaction Status Date / Time Penicillins Allergy Rash Verified 01/20/22 01:57 Social History Smoking Status: Never smoker ROS ROS ED Constitutional Constitutional ED: Denies chills or fever(s) ENT ENT ED: Denies sore throat Cardiovascular Cardiovascular: Reports as per HPI Respiratory/Chest Respiratory/Chest: Reports dyspnea; Denies cough or sputum Gastrointestinal Gastrointestinal: Denies nausea or vomiting Genitourinary Genitourinary ED: Denies hematuria Musculoskeletal Musculoskeletal: Denies back pain or neck pain Integumentary Denies rash Neurologic Neurologic: Denies weakness Endocrine Endocrinology: Denies polydipsia or polyuria Hematologic/Lymphatic Hematologic/Lymphatic: Reports easy bleeding and easy bruising Allergic/Immunologic Allergic/Immunologic ED: Denies urticaria EXAM Physical Exam Const Vital Signs: 01/20/22 01:50 01/20/22 02:24 01/20/22 03:50 Temperature 97.4 F L Temperature Source Temporal Pulse Rate 86 60 Respiratory Rate 17 18 Blood Pressure 152/88 H 128/84 H Blood Pressure Mean 109 98 Pulse Ox 98 98 Oxygen Delivery Method Room Air Room Air Room Air 01/20/22 05:06 Temperature Temperature Source Pulse Rate 62 Respiratory Rate 14 Blood Pressure 128/79 H Blood Pressure Mean 95 Pulse Ox 98 Oxygen Delivery Method Room Air Positive well nourished and well developed General Appearance ED: well developed and NAD HEENT Reports moist mucous membranes Eyes General Eye ED: Negative for scleral icterus Neck no JVD Chest Wall inspection of chest normal and palpation of chest normal Resp normal respiratory effort and clear to auscultation bilaterally Auscultation: Negative for rales, rhonchi or wheezes Cardio regular rate and regular rhythm GI normal to inspection, nondistended, normoactive bowel sounds, soft to palpation, non-tender and non-distended Back/Spine no CVA tenderness Extremity normal to inspection General Extremety ED: Negative for edema, pulses abnormal or tenderness General Extremity: Negative for edema or pulses abnormal Neuro Sensorium / Orientation: awake and alert Psych mental status grossly normal Skin no rashes or lesions noted MDM MDM MDM Narrative Medical decision making narrative: Patient CBC is overall unremarkable. INR is a little bit below therapeutic at 1.6. We did give him Lovenox as a bridging dose. I recommend he get this rechecked tomorrow. He will go through his primary physician but he thinks he might have an automatic lab test that he can get this checked regularly. Troponin was 6. Second was 8. He has symptoms that were in the right side where his pulmonary embolus was. He is not hypoxic hypotensive tachycardic. I think he is okay for discharge. I think it is more likely his symptoms were due to this PE and cardiac disease. Lab Data Attestation: I reviewed the patient's lab results. Labs: Laboratory Results - last 24 hr 01/20/22 01/20/22 01/20/22 02:14 02:14 02:14 WBC 6.7 RBC 4.40 L Hgb 13.3 Hct 40.1 MCV 91.1 MCH 30.2 MCHC 33.2 RDW Std Deviation 48.2 H RDW Coeff of Marta 14.6 Plt Count 240 MPV 9.3 Immature Gran % (Auto) 0.400 Neut % (Auto) 55.3 Lymph % (Auto) 25.5 Shasta % (Auto) 10.3 H Eos % (Auto) 7.8 H Baso % (Auto) 0.7 Absolute Neuts (auto) 3.7 Absolute Lymphs (auto) 1.70 Nucleated RBC % 0 PT 18.5 H INR 1.6 Sodium 140 Potassium 3.8 Chloride 109 H Carbon Dioxide 24.0 Anion Gap 7 BUN 25 H Creatinine 0.75 Estim Creat Clear Calc 83.34 Est GFR (MDRD) Af Amer 133 Est GFR (MDRD) Non-Af 110 BUN/Creatinine Ratio 33.2 H Glucose 99 Calcium 8.9 Troponin I High Sens 6 01/20/22 04:38 WBC RBC Hgb Hct MCV MCH MCHC RDW Std Deviation RDW Coeff of Marta Plt Count MPV Immature Gran % (Auto) Neut % (Auto) Lymph % (Auto) Shasta % (Auto) Eos % (Auto) Baso % (Auto) Absolute Neuts (auto) Absolute Lymphs (auto) Nucleated RBC % PT INR Sodium Potassium Chloride Carbon Dioxide Anion Gap BUN Creatinine Estim Creat Clear Calc Est GFR (MDRD) Af Amer Est GFR (MDRD) Non-Af BUN/Creatinine Ratio Glucose Calcium Troponin I High Sens 8 Radiography Diagnostic Testing: Clinical Impression(s) from Imaging Studies Chest X-Ray 01/20/22 02:30 IMPRESSION: No acute findings in the chest. Electronically Signed: Aaron Cervantes MD at 2:50 EDT , Chest x-ray looked at by me and read by radiology shows no acute process. EKG Initial EKG: Comments: EKG done for chest tightness read by me shows a normal sinus rhythm with overall rate of 71. No ectopy. No acute ST elevation or depression. [place] interval, QRS duration and QTc normal. Discharge Plan Triage Chief Complaint: Chest Pain ED Provider: Teja Fang Dx/Rx/DC Orders Clinical Impression: Pulmonary embolism, Chest pain, Warfarin-induced coagulopathy Instructions: Embolism Pulmonary Dc, ED Chest Pain, Uncertain Cause Prescriptions: No Action meloxicam 15 MG tablet 15 mg PO DAILY Label Comments: TAKE 1 TABLET BY MOUTH ONCE DAILY amlodipine 10 tablet 10 mg PO DAILY allopurinol 300 MG tablet 300 mg PO DAILY Label Comments: TAKE 1 TABLET BY MOUTH ONCE DAILY FOR GOUT lisinopril 40 MG tablet 40 mg PO DAILY Label Comments: TAKE 1 TABLET BY MOUTH ONCE DAILY warfarin 5 mg tablet 5 mg 1XD Primary Care Provider: Fernando Duckworth Referrals: Fernando Duckworth MD [Primary Care Provider] - 1 Day Activity Restrictions/Additional Instructions: Call your doctor about repeating the Coumadin/INR test tomorrow. Disposition Disposition: Home, Self Care
--- NOTE | 2022-01-20 02:30 | RAD_ITS ---
EXAM: XR CHEST, 1 VIEW CLINICAL INDICATION: chest pain TECHNIQUE: Frontal view of the chest. This report was created using [employer] report generation technology. COMPARISON: 03/22/2020 FINDINGS: LUNGS AND PLEURAL SPACES: Bibasilar atelectasis. No pneumothorax. No effusion. HEART: Unremarkable. Cardiac silhouette not enlarged. MEDIASTINUM: Central airways and mediastinal contour are unremarkable. BONES/JOINTS: Unremarkable. SOFT TISSUES: Unremarkable. RAD/Chest 1 View (Portable) IMPRESSION: No acute findings in the chest. Electronically Signed: Aaron Cervantes MD at 2:50 EDT ,
[2022-01-20 02:32] LABS: Absolute Neutrophil Count 3.7 X10^3/uL (2.0-7.7); Basophil# 0.05 X10^3/uL; Basophil% 0.7 % (0-1); Eosinophil# 0.52 X10^3/uL; Eosinophils% 7.8 % (0-5); Hematocrit 40.1 % (40-54); Hemoglobin 13.3 g/dL (13.0-16.5); Lymphocyte % 25.5 % (19-41); Mean Corp Hgb Conc 33.2 g/dL (32-36); Mean Corpuscular Hgb 30.2 pg (27.0-32.0); Mean Corpuscular Volume 91.1 fL (80-94); Mean Platelet Vol. 9.3 fl (6.2-12.0); Monocyte# 0.69 X10^3/uL; Monocyte% 10.3 % (0-10); NRBC Flagged by Analyzer 0 % (0-5); Neutrophil # 3.68 X10^3/uL (2.7-7.7); Neutrophil % 55.3 % (47-70); Platelet Count 240 K/mm3 (150-450); RBC Distribution Width CV 14.6 % (11.6-14.6); RBC Distribution Width SD 48.2 fl (35.1-43.9); White Blood Count 6.7 K/mm3 (4.4-11.0)
[2022-01-20 02:41] LABS: International Normalized Ratio 1.6; Prothrombin Time (Protime)PT. 18.5 SECONDS (11.7-14.9)
[2022-01-20 02:50] LABS: Anion Gap 7 (5-15); BUN 25 mg/dL (7-18); BUN/Creat Ratio 33.2 RATIO (10-20); Calcium,Total 8.9 mg/dL (8.5-10.1); Chloride 109 mmol/L (98-107); Creatinine, Serum 0.75 mg/dL (0.70-1.30); EST Glomerular Filtration Rate 110 mL/min (>60); Est Glom Filt Rate - Afr Amer 133 mL/min (>60); Estimated Creatinine Clearance 83.34 ml/min; Glucose 99 mg/dL (74-106); Potassium 3.8 mmol/L (3.5-5.1); Sodium Level 140 mmol/L (136-145); Troponin-I HS (w/2H Reflex) 6 pg/mL (3.0-78.0)
[2022-01-20 03:50] VITALS: BP 128/84; PULSE 60; RESP 18; O2SAT 98
[2022-01-20] MEDS: Enoxaparin 100 MG/ML Syringe SC (03:58)
[2022-01-20 04:28] LABS: Reflex Troponin-HS? (from REC) Y
[2022-01-20 05:06] VITALS: BP 128/79; PULSE 62; RESP 14; O2SAT 98
[2022-01-20 05:15] LABS: Troponin-I HS 8 pg/mL (3.0-78.0)
[2022-01-20 05:27] VITALS: BP 139/87; PULSE 68; RESP 16; O2SAT 98
== END 2022-01-20 05:28 | disposition home or self-care (01) ==
PROVIDERS: Emergency Provider Emergency Medicine; PCP Family Medicine; Visit Provider Emergency Medicine
DX: I26.99 Other pulmonary embolism without acute cor pulmonale (principal); D68.32 Hemorrhagic disorder due to extrinsic circulating anticoagulants; T45.515A Adverse effect of anticoagulants, initial encounter
CPT/HCPCS: 71045; 80048; 84484; 85025; 85610; 93005; 96372; 99284; J7030; A4216

== ENCOUNTER → 2022-07-07 | Outpatient (CLI) | payer MEDICARE, OTHER, SELFPAY ==
--- NOTE | 2022-07-07 13:49 | ART_ITS ---
Reason For Study: PVD Procedure A bilateral lower extremity continuous wave Doppler with analog waveform analysis,segmental pressures,and ankle brachial indexes without exercise. Did not walk patient on treadmill due to ambulation with cane and unsteadiness on feet. Left Segmental Pressures Left brachial= 119mmHg. Left posterior tibial artery = 153mmHg. Left dorsalis pedis artery = 144mmHg. Left digit = 122 mmHg. The left dorsalis pedis waveforms are triphasic. The left posterior tibial artery waveforms are triphasic. Right Segmental Pressures Right brachial= 123mmHg. Right posterior tibial artery = 147mmHg. Right dorsalis pedis artery = 153mmHg. Right digit = 123 mmHg. The right dorsalis pedis waveforms are triphasic. The right posterior tibial artery waveforms are triphasic. Indices The right ankle brachial index by the dorsalis pedis is 1.24. The right ankle brachial index by the posterior tibial artery is 1.20. The right digital-brachial index is 1.00. The left ankle brachial index by the dorsalis pedis is 1.17. The left ankle brachial index by the posterior tibial artery is 1.24. The left digital-brachial index is 0.99. VL/Lower Ext Art Exam w/ Exercise Interpretation Summary Normal right posterior tibial and dorsalis pedis ankle-brachial indices of 1.2 and 1.24 respectively with a normal triphasic Doppler waveforms. Normal right digital brachial index of 1 Normal left posterior tibialis and dorsalis pedis ankle-brachial index of 1.24 and 1.17 respectively with normal triphasic Doppler waveforms. Normal left digital brachial index of 0.99 Ordering Physician: Jose Rees Referring Physician: Stephanie Pascual Performed By: Summer Robertson RVT
== END | disposition home or self-care (01) ==
LOC: CVS 13:47
PROVIDERS: PCP Family Medicine; Referring Provider Podiatrist; Visit Provider Podiatrist
DX: I73.9 Peripheral vascular disease, unspecified (principal)
CPT/HCPCS: 93924

== ENCOUNTER → 2022-08-17 | Outpatient (CLI) | payer MEDICARE, OTHER, SELFPAY ==
--- NOTE | 2022-08-17 14:32 | NEURO ---
NCS and/or EMG Patient Report Ordering Doctor: Jose Rees DATE OF SERVICE: 08/17/22 Indication: History of generalized, axonal, peripheral polyneuropathy which was evaluated by electrodiagnostic testing in 2019. Unclear etiology at this time. Patient reports worsening balance and sensation in the feet bilaterally. Of note, he is on therapeutic anticoagulation with Coumadin. Findings: Nerve conduction studies were performed in the bilateral lower extremities. The right peroneal motor study recording the extensor digitorum brevis was absent. The right tibial motor study recording the abductor hallucis brevis was absent. The right sural sensory response was absent. The right superficial peroneal sensory response was absent. The left peroneal motor study recording the extensor digitorum brevis was absent. The left tibial motor study recording the abductor hallucis brevis was absent. The left sural sensory response was absent. The left superficial peroneal sensory response was absent. Needle EMG of the lower extremity muscles was omitted given the limited additional diagnostic yield and the increased risk of being on anticoagulation. Impression: This is a markedly abnormal study. There is electrophysiologic evidence of a severe, axonal, peripheral polyneuropathy. Findings on nerve conduction studies are similar to those obtained in 2020. Segun Ly D.O. Multi Select Codes Neurology Neurology Interp Codes: 35781-37 [facility]8 studies (interp)
== END | disposition home or self-care (01) ==
LOC: PSN 12:49
PROVIDERS: PCP Family Medicine; Visit Provider Podiatrist
DX: G60.8 Other hereditary and idiopathic neuropathies (principal)
CPT/HCPCS: 95910

== ENCOUNTER → 2022-10-20 | Outpatient (CLI) | payer MEDICARE, OTHER, SELFPAY ==
[2022-10-20 12:36] LABS: Absolute Lymphocyte Count 1.42 X10^3/uL (0.83-4.51); Absolute Neutrophil Count 3.4 X10^3/uL (2.0-7.7); Basophil# 0.05 X10^3/uL; Basophil% 0.9 % (0-1); Eosinophil# 0.22 X10^3/uL; Eosinophils% 3.9 % (0-5); Hematocrit 42.4 % (40-54); Hemoglobin 14.4 g/dL (13.0-16.5); Lymphocyte # 1.42 X10^3/ul (0.83-4.51); Lymphocyte % 25.2 % (19-41); Mean Corpuscular Volume 91.4 fL (80-94); Mean Platelet Vol. 9.6 fl (6.2-12.0); Monocyte% 8.9 % (0-10); NRBC Flagged by Analyzer 0 % (0-5); Neutrophil # 3.43 X10^3/uL (2.7-7.7); Neutrophil % 60.7 % (47-70); Platelet Count 296 K/mm3 (150-450); RBC Distribution Width CV 15.1 % (11.6-14.6); RBC Distribution Width SD 49.8 fl (35.1-43.9); Red Blood Count 4.64 M/mm3 (4.6-6.2); White Blood Count 5.6 K/mm3 (4.4-11.0)
[2022-10-20 12:48] LABS: Anion Gap 6 (5-15); BUN 29 mg/dL (7-18); BUN/Creat Ratio 43.2 RATIO (10-20); Calcium,Total 9.6 mg/dL (8.5-10.1); Chloride 106 mmol/L (98-107); Cholesterol 213 mg/dL (200); Creatinine, Serum 0.67 mg/dL (0.70-1.30); EST Glomerular Filtration Rate 125 mL/min (>60); Est Glom Filt Rate - Afr Amer 151 mL/min (>60); Glucose 96 mg/dL (74-106); High Density Lipoprotein 46 mg/dL; Potassium 4.1 mmol/L (3.5-5.1); Sodium Level 137 mmol/L (136-145); Triglycerides 186 mg/dL; Uric Acid 5.8 mg/dL (3.5-7.2); Very Low Density Lipoprotein 37 mg/dL (5-40)
[2022-10-20 12:57] LABS: Vitamin D,25 Hydroxy 27.4 ng/mL
== END | disposition home or self-care (01) ==
LOC: LAB.FUTURE 08:51
PROVIDERS: PCP Family Medicine; Visit Provider Family Medicine
DX: I10 Essential (primary) hypertension (principal); Z79.01 Long term (current) use of anticoagulants; M10.9 Gout, unspecified
CPT/HCPCS: 36415; 80048; 80061; 82306; 84550; 85025

== ENCOUNTER → 2024-10-31 | Outpatient (CLI) | payer MEDICARE, OTHER, SELFPAY ==
[2024-10-31 15:57] LABS: Hematocrit 41.8 % (40-54); Hemoglobin 14.2 g/dL (13.0-16.5); Immature Granulocytes Count 0.040 X10^3/uL (0.0-0.0); Mean Corp Hgb Conc 34.0 g/dL (32-36); Mean Corpuscular Volume 90.9 fL (80-94); Mean Platelet Vol. 9.7 fl (6.2-12.0); NRBC Flagged by Analyzer 0 % (0-5); Platelet Count 303 K/mm3 (150-450); RBC Distribution Width CV 14.4 % (11.6-14.6); RBC Distribution Width SD 47.6 fl (35.1-43.9); Red Blood Count 4.60 M/mm3 (4.6-6.2); White Blood Count 6.5 K/mm3 (4.4-11.0)
[2024-10-31 17:02] LABS: AST(SGOT) 41 U/L (<=37); Alanine Aminotransfer ALT/SGPT 38 U/L (<=46); Albumin, Serum 4.4 g/dL (3.4-4.8); Alkaline Phosphatase 84 U/L (40-129); Anion Gap 13 (5-15); BUN 23 mg/dL (4-19); BUN/Creat Ratio 34.2 RATIO (10-20); Calcium,Total 9.6 mg/dL (7.6-11.0); Carbon Dioxide 22.9 mmol/L (21.0-32.0); Chloride 100 mmol/L (98-108); Globulin 3.6 g/dL (2.2-4.2); Glucose 86 mg/dL (70-99); Potassium 4.3 mmol/L (3.3-5.1)
== END | disposition home or self-care (01) ==
LOC: BFHLAB 13:55
PROVIDERS: PCP Family Medicine; Visit Provider Family Medicine
DX: R73.01 Impaired fasting glucose (principal); Z79.01 Long term (current) use of anticoagulants; G72.49 Other inflammatory and immune myopathies, not elsewhere classified; I10 Essential (primary) hypertension
CPT/HCPCS: 36415; 80053; 83036; 84443; 85025

== ENCOUNTER 2024-12-28 18:14 | Emergency (ER) | payer MEDICARE, OTHER, SELFPAY ==
[2024-12-28 18:15] VITALS: BP 152/84; PULSE 80; RESP 17; TEMP 36.6; O2SAT 100
--- NOTE | 2024-12-28 18:42 | CT_ITS ---
EXAM: CT BRAIN/HEAD WITHOUT CONTRAST; SPINE CERVICAL WITHOUT CONTRAST CLINICAL HISTORY: TRAUMA COMPARISON: None. TECHNIQUE: Noncontrast CT images of the head and cervical spine with multiplanar reconstructions. Dose reduction techniques were used including intermediate exposure control (AEC),iterative reconstruction technique, and/or mA and/or KV dose adjustments based on patient's size. FINDINGS: HEAD: No acute intracranial hemorrhage, extra-axial collection, mass effect or evidence of acute infarct. Mild generalized brain parenchymal volume loss and chronic microangiopathic changes. Unremarkable orbits. Mild subcutaneous contusions to the left and right posterior parietal scalp. No acute skull base or calvarial fracture. Well-aerated paranasal sinuses and mastoid air cells. CERVICAL SPINE: No acute fracture or subluxation. Straightening with reversal of the normal cervical lordosis is likely positional and/or degenerative in nature. Multilevel spondylotic changes with varying degrees of disc space narrowing, anterior osteophytosis, uncovertebral spurring and hypertrophic facet arthropathy. No prevertebral soft tissue swelling. Atherosclerotic vascular calcifications. CT/Spine Cervical without Contras IMPRESSION: 1. No acute intracranial abnormality. 2. Mild biparietal scalp contusions. No calvarial fracture. 3. No acute C-spine fracture or traumatic malalignment. Mild spondylotic change s. Reading Location: [id number]
--- NOTE | 2024-12-28 18:42 | CT_ITS ---
EXAM: CT BRAIN/HEAD WITHOUT CONTRAST; SPINE CERVICAL WITHOUT CONTRAST CLINICAL HISTORY: TRAUMA COMPARISON: None. TECHNIQUE: Noncontrast CT images of the head and cervical spine with multiplanar reconstructions. Dose reduction techniques were used including intermediate exposure control (AEC),iterative reconstruction technique, and/or mA and/or KV dose adjustments based on patient's size. FINDINGS: HEAD: No acute intracranial hemorrhage, extra-axial collection, mass effect or evidence of acute infarct. Mild generalized brain parenchymal volume loss and chronic microangiopathic changes. Unremarkable orbits. Mild subcutaneous contusions to the left and right posterior parietal scalp. No acute skull base or calvarial fracture. Well-aerated paranasal sinuses and mastoid air cells. CERVICAL SPINE: No acute fracture or subluxation. Straightening with reversal of the normal cervical lordosis is likely positional and/or degenerative in nature. Multilevel spondylotic changes with varying degrees of disc space narrowing, anterior osteophytosis, uncovertebral spurring and hypertrophic facet arthropathy. No prevertebral soft tissue swelling. Atherosclerotic vascular calcifications. CT/Brain/Head without Contrast IMPRESSION: 1. No acute intracranial abnormality. 2. Mild biparietal scalp contusions. No calvarial fracture. 3. No acute C-spine fracture or traumatic malalignment. Mild spondylotic change s. Reading Location: [id number]
--- NOTE | 2024-12-28 18:42 | ED.VIS.FALL ---
HPI HPI - Fall History of Present Illness Chief Complaint: Fall Narrative Narrative: 69-year-old male past medical history of muscle disease, states he has frequent falls, presents with fall and head laceration that he sustained prior to arrival. He states that he was walking and his legs tend to give out on him. In fact he had fallen yesterday as well. He fell backwards today and struck the back of his head and sustained a laceration to the right side of his head. His tetanus immunization is current. He denies any neck pain. He has slight headache. Of significance, he states he takes warfarin for pulmonary embolism. He presents mainly because of the laceration to his occipital scalp on the right. [facility] Medical History (Updated 12/28/24 @ 21:01 by Shine Duvall MD) Lymphedema GERD (gastroesophageal reflux disease) DVT (deep venous thrombosis) Hypertension Home Medications ?Medication ?Instructions ?Recorded ?Last Taken ?Type allopurinol 300 mg tablet 300 mg PO DAILY 06/14/19 11/08/19 History amlodipine 10 mg tablet 10 mg PO DAILY 06/14/19 11/08/19 History lisinopril 40 mg tablet 40 mg PO DAILY 06/14/19 11/08/19 History meloxicam 15 mg tablet 15 mg PO DAILY 06/14/19 11/08/19 History alendronate 70 mg tablet 70 mg PO QWEEK 12/28/24 Unknown History duloxetine 30 mg capsule,delayed 30 mg PO DAILY 12/28/24 Unknown History release warfarin 3 mg tablet 3 mg PO .COMPLEX 12/28/24 12/27/24 History warfarin 4 mg tablet 4 mg PO .COMPLEX 12/28/24 12/26/24 History Allergy/AdvReac Type Severity Reaction Status Date / Time Penicillins Allergy Rash Verified 12/28/24 18:18 Social History Smoking Status: Never smoker ROS ROS ED ROS Narrative Review of systems positive for laceration occiput more on the right. History of frequent falls. No loss of consciousness. No neck pain. Denies other injury. Tetanus immunization current within the last 3 years. EXAM Physical Exam Narrative Exam Narrative: GCS 15. ABCs are intact. HEENT examination shows 4 cm laceration without active bleeding on the occiput extending to the parietal area, no apparent galeal involvement as it is not gaping. PERRL, EOMI. Neck soft and supple without vertebral point tenderness or bony step-off. Full range of motion without pain. Cardiovascular examination reveals regular rate and rhythm. Lungs clear to auscultation bilaterally. Abdomen soft nontender with normal active bowel sounds. Neurological examination nonfocal, nonlateralizing. Able to raise arms above head without difficulty. Awake, alert, oriented x 3. Appropriate. Const Vital Signs: 12/28/24 18:15 12/28/24 18:47 12/28/24 20:00 Temperature 97.9 F Temperature Source Temporal Pulse Rate 80 66 Respiratory Rate 17 14 Respiratory Effort Normal Respiratory Depth Normal Respiratory Pattern Normal Blood Pressure 152/84 H 150/80 H Blood Pressure Mean 106 103 Pulse Ox 100 99 Oxygen Delivery Method Room Air Room Air MDM MDM MDM Narrative Medical decision making narrative: Differential diagnosis includes but not limited to closed head injury versus intracranial hemorrhage versus skull fracture. Let will be applied in CT imaging of the brain CT scanner cervical spine will be obtained to rule out fracture although he is having no pain. I reviewed the radiology report of the CT of the brain as well as the C-spine and there is no evidence of acute fracture, no acute intracranial abnormality. He has mild biparietal scalp contusions but no evidence of skull fracture. No C-spine fracture. INR therapeutic at 2.3. Upon reexamination after let applied twice, he is still having sharp pain. Lidocaine 1% was used as a local anesthetic. Wound had been cleansed. I recleansed it with saline and Shur-Clens. Skin edges approximated with 7 surgical irvin. Patient tolerated procedure well. He was offered Tylenol but chose to take [id number] medications. I feel he can be discharged to follow-up. He will have the irvin removed in 7 to 10 days by his primary care provider or return to the emergency department. He is to look for signs of infection as well. Disposition is discharged home in stable condition. History & Record Review Discussion w/independent historian: Patient and Family () Additional record(s) reviewed:: Prior ED visit (Seen previously for fall and trip as well as chest pain.) Lab Data Attestation: I reviewed the patient's lab results. Labs: Laboratory Results - last 24 hr 12/28/24 18:50 PT 25.4 H INR 2.3 Radiography Diagnostic Testing: Clinical Impression(s) from Imaging Studies Brain CT 12/28/24 18:42 IMPRESSION: 1. No acute intracranial abnormality. 2. Mild biparietal scalp contusions. No calvarial fracture. 3. No acute C-spine fracture or traumatic malalignment. Mild spondylotic changes. Reading Location: [facility] Cervical Spine CT 12/28/24 18:42 IMPRESSION: 1. No acute intracranial abnormality. 2. Mild biparietal scalp contusions. No calvarial fracture. 3. No acute C-spine fracture or traumatic malalignment. Mild spondylotic changes. Reading Location: [facility] Discharge Plan Triage Chief Complaint: Fall ED Provider: Shine Duvall Dx/Rx/DC Orders Clinical Impression: Frequent falls, Inclusion body myositis, Occipital scalp laceration, Closed head injury, Current use of care home anticoagulation Instructions: ED Head Injury (Adult), ED Laceration Scalp Stitches or [place], ED Fall Prevention Prescriptions: No Action meloxicam 15 MG tablet 15 mg PO DAILY Patient Comments: TAKE 1 TABLET BY MOUTH ONCE DAILY amlodipine 10 tablet 10 mg PO DAILY allopurinol 300 MG tablet 300 mg PO DAILY Patient Comments: TAKE 1 TABLET BY MOUTH ONCE DAILY FOR GOUT lisinopril 40 MG tablet 40 mg PO DAILY Patient Comments: TAKE 1 TABLET BY MOUTH ONCE DAILY warfarin 3 mg tablet 3 mg PO .COMPLEX Rx Instructions: 3 mg orally one every other day; warfarin 4 mg tablet 4 mg PO .COMPLEX Rx Instructions: 4 mg orally one every other day; duloxetine 30 mg capsule,delayed release(DR/EC) 30 mg PO DAILY alendronate 70 mg tablet 70 mg PO QWEEK Primary Care Provider: Stephanie Pascual Referrals: Stephanie Pascual MD [Primary Care Provider] - 10 Day for suture removal Activity Restrictions/Additional Instructions: Tylenol as needed for pain. Have irvin removed by your primary care provider in 10 days or return to the emergency department. Return with new or worsening symptoms. Print Language: Micronesian Disposition Disposition: Home, Self Care
[2024-12-28 18:47] VITALS: BMI 28.0
[2024-12-28] MEDS: Lidocaine/Epi/Tetracaine 50 ML 1 APPLIC TOPICAL (18:59)
[2024-12-28 19:18] LABS: Prothrombin Time (Protime)PT. 25.4 SECONDS (11.7-14.9)
[2024-12-28 20:00] VITALS: BP 150/80; PULSE 66; RESP 14; O2SAT 99
[2024-12-28] MEDS: Lidocaine 1% (20 ml mdv) 20 ML Vial INFILT (20:52)
[2024-12-28 21:10] VITALS: BP 142/80; PULSE 78; RESP 14; TEMP 36.3; O2SAT 99
== END 2024-12-28 21:26 | disposition home or self-care (01) ==
PROVIDERS: Emergency Provider Emergency Medicine; PCP Family Medicine; Visit Provider Emergency Medicine
DX: S01.01XA Laceration without foreign body of scalp, initial encounter (principal); M60.9 Myositis, unspecified; Z86.718 Personal history of other venous thrombosis and embolism; Z79.01 Long term (current) use of anticoagulants; S09.90XA Unspecified injury of head, initial encounter; R29.6 Repeated falls; W01.10XA Fall on same level from slipping, tripping and stumbling with subsequent striking against unspecified object, initial encounter; I10 Essential (primary) hypertension; Z79.899 Other long term (current) drug therapy
CPT/HCPCS: 12002; 70450; 72125; 85610; 99284